=== PATIENT | male | born 1970 | race Caucasian/White ===

== ENCOUNTER 2021-04-09 17:01 | Observation (INO) | payer OTHER, BC, SELFPAY ==
[2021-04-09] VITALS (16 sets, daily range): BP systolic 132–176; BP diastolic 87–102; PULSE 70–78; RESP 10–19; TEMP 36.9; O2SAT 97–100
--- NOTE | ~2021-04-09 | MR_ITS ---
EXAMINATION: MR brain/brain stem wo/w con EXAM DATE: 04/10/2021 08:16 INDICATION: Transient Global Amnesia . TECHNIQUE: Magnetic resonance imaging (MRI) of the brain/brain stem obtained without contrast. Sagit maia T1, axial diffusion, gradient echo (T2*), T1, T2, FLAIR sequences obtained. Patient was then inj ected with 20 cc intravenous Multihance contrast. Axial and coronal postcontrast T1 weighted sequence s obtained. There is no prior study for comparison. FINDINGS: There are no areas of restricted diffusion to suggest acute infarction. There is no acute hemorrhage seen on the T2*, a hemosiderin sensitive sequence. No intraparenchymal brain mass. The ve ntricles are normal in size. There are no extra-axial collections. Flow voids are seen in the cereb ral arteries on the T2-weighted sequences consistent with their expected patency. The orbits are unr emarkable. Soft tissue is unremarkable. Mild ethmoid, sphenoid and maxillary sinus mucoperiosteal th ickening. There are no areas of abnormal enhancement on the postcontrast images. IMPRESSION: 1. No acute intracranial findings. 2. Mild mucoperiosteal thickening. Reviewed, dictated and finalized at location A. INS WINDER
--- NOTE | ~2021-04-09 | XR_ITS ---
EXAMINATION: XR chest 2V DATE: 04/09/2021 17:44 INDICATION: Transient alteration of awareness. TECHNIQUE: Frontal and lateral views of the chest were obtained. COMPARISON: None. FINDINGS: Calcified pulmonary nodules are consistent with old granulomatous disease. No pleural effus ion or pneumothorax. The heart size is normal. There is mild chronic anterior wedging of multiple shelia tebral bodies. IMPRESSION: 1. No acute cardiopulmonary disease. Reviewed, dictated and finalized at location A. D FIBER PASTER OPERATOR
--- NOTE | ~2021-04-09 | CT_ITS ---
EXAMINATION: CTA brain carotid EXAM DATE: 04/10/2021 09:10 INDICATION: Altered mental status . Transient global amnesia. Transient alteration of awareness. TECHNIQUE: Spiral CTA of the carotid arteries was performed with intravenous injection 100 cc of Omn ipaque 350. Axial, coronal, sagittal reformatted images reviewed. Additional reformatted images crea angelika on dedicated 3-D workstation. NASCET comparable standard used to assess the degree of arterial s tenosis. Spiral CT angiogram cerebral arteries performed with the same intravenous injection of cont rast. Source images of the brain CTA transferred to dedicated workstation for 3-D rotational image cr eation. Coronal, sagittal maximum intensity pixel images also reviewed. The dose-length product (DL P) for this examination was 1264.77 mGy-cm. The exposure was tailored according to patient size, an d iterative reconstruction (ASIR) was used as additional dose reduction technique. Correlation is mad e to head CT from yesterday. FINDINGS: No focal carotid plaque, bilateral carotid bulb 0% stenosis. The vertebral arteries are cod ominant. Carotid siphons unremarkable. There is no carotid or vertebral basilar arterial dissection or fibromuscular dysplasia. There are no cerebral artery aneurysms. There is symmetric cerebral arter y arborization. The sagittal, transverse and sigmoid sinuses enhance normally, no venous sinus thromb osis. Internal cerebral veins also enhance normally. Incidental Findings: Right thyroid lobe 1.2 cm nodule. Mild to moderate mucoperiosteal thickening. Mo derate cervical spondylosis. IMPRESSION: 1. No acute carotid or intracranial findings. 2. Bilateral carotid bulb 0% stenosis. 3. Qnoi-dd-mugnhrde mucoperiosteal thickening. Reviewed, dictated and finalized at location A. ICATIONS ANALYST IMPRESSION: 1. No acute carotid or intracranial findings. 2. Bilateral carotid bulb 0% stenosis. 3. Wvzr-vv-[id number] mucoperiosteal thickening.
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
--- NOTE | ~2021-04-09 | US_ITS ---
EXAMINATION: US carotid duplex BI DATE: 04/10/2021 09:03 INDICATION: Encephalopathy with altered mental status. TECHNIQUE: Grayscale, color Doppler, and pulsed Doppler images of the cervical carotid arteries were obtained. The degree of vessel stenosis is placed in one of the following categories: normal, <50%, 5 0-69%, >=70% but less than near-occlusion, near-occlusion, or total occlusion. Note that percent sten osis relative to normal distal artery lumen diameter is indirectly measured from velocity measurement s as described by Dereck, et al. Radiology 2003; 229:340-346. COMPARISON: None. FINDINGS: RIGHT: The right common carotid artery (CCA) peak systolic velocity (PSV) is 148 cm/s. The right internal ca rotid artery (ICA) PSV is 77 cm/s. The right ICA end-diastolic velocity (EDV) is 19 cm/s. The right I CA/CCA PSV ratio is 0.5. Grayscale and color Doppler images yield an estimate of <50% diameter reduct ion from plaque in the ICA. The external carotid artery (ECA) PSV is 67 cm/s. There is antegrade flow in the right vertebral artery. Incidentally noted likely benign 1.2 cm nearly entirely cystic right thyroid nodule. LEFT: The left CCA PSV is 139 cm/s. The left ICA PSV is 61 cm/s. The left ICA EDV is 19 cm/s. The left ICA/ CCA PSV ratio is 0.4. Grayscale and color Doppler images yield an estimate of <50% diameter reduction from plaque in the ICA. The ECA PSV is 41 cm/s. There is antegrade flow in the left vertebral artery . IMPRESSION: 1. <50% stenosis from minimal plaque in the right internal carotid artery. 2. <50% stenosis from minimal plaque in the left internal carotid artery. Reviewed, dictated and finalized at location A. ING BALL ENGRAVER
--- NOTE | 2021-04-09 17:04 | ECG_ITS ---
Measurements Intervals [place] Rate: 72 P: 31 FL: 143 QRS: 51 QRSD: 90 T: 22 QT: 420 QTc: 461 Interpretive Statements SINUS RHYTHM NONSPECIFIC ST & T-WAVE ABNORMALITY- ANT/INF LEADS BASELINE ARTIFACT- I, II, III, AVR, AVL, AVF, V1-V3 BORDERLINE ECG Electronically Signed On 04-09-2021 20:35:39 STUDENT FINANCE SPECIALIST by Asher James D.O.
[2021-04-09 18:08] LABS: Basophils Absolute Auto 0.1 K/mm3 (0.0-0.1); Basophils Percent Auto 0.8 % (0.2-1.2); Hematocrit 51.4 % (42.0-52.0); Hemoglobin 17.6 g/dL (14.0-18.0); Immature Granulocyte Absolute 0.06 K/mm3 (0.00-0.031); Immature Granulocyte Percent A 0.5 % (0-0.5); Lymphocytes Percent Auto 19.4 % (18.3-44.2); Mean Corpuscular HGB Conc 34.2 g/dl (32-36); Mean Corpuscular Hemoglobin 30.1 pg (26-34); Mean Platelet Volume 9.3 fl (7.4-10.4); Monocytes Absolute Auto 1.1 K/mm3 (0.1-0.6); Monocytes Percent Auto 8.1 % (2.6-8.5); Neutrophils Absolute Auto 9.2 K/mm3 (1.3-6.7); Neutrophils Percent Auto 71.2 % (45.5-73.1); Platelet Count Result 252 k/mm3 (150-375); Red Blood Count 5.84 M/mm3 (4.6-6.20); Red Cell Distribution Width 14.1 % (11.5-14.5); White Blood Count 12.9 K/mm3 (4.5-10.0)
[2021-04-09 18:12] LABS: Prothrombin Time 13.1 Seconds (11.1-14.7)
[2021-04-09 18:13] LABS: Partial Thromboplastin Time 34.3 SECONDS (22.3-36.8)
[2021-04-09 18:19] LABS: Ethanol < 10 mg/dL (<10)
[2021-04-09 18:20] LABS: Add Urine Microscopic? NO; Appearance Urine Clear (Clear); Bilirubin Urine Negative (Negative); Blood Urine Negative (Negative); Color Urine Yellow (Yellow); Glucose Urine UA Negative (Negative); Ketones Urine Negative (Negative); Leukocyte Esterase Ur Negative LEU/UL (Negative); Nitrate Urine Negative (Negative); Protein Urine Negative (Negative); Specific Grav Ur 1.023 (1.001-1.035); Urobilinogen Urine Negative mg/dL (<2.0)
[2021-04-09 18:26] LABS: Anion Gap 10 mmol/L (8-16); Blood Urea Nitrogen 18 mg/dL (9-20); Calcium 9.4 mg/dL (8.4-10.2); Carbon Dioxide 26 mmol/L (22-30); Chloride 105 mmol/L (98-107); Estimated CRCL calculation 102 ml/min; Estimated Glomerular Filt Rate > 60; Glucose 102 mg/dL (65-110); Potassium 4.2 mmol/L (3.4-5.0); Sodium 141 mmol/L (137-145)
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
[2021-04-09 18:30] LABS: Barbiturate Screen Urine Negative (Negative); Benzodiazepines Screen Urine Negative (Negative)
[2021-04-09 18:31] LABS: Amphetamine Screen Urine Negative (Negative); Cannabinoid Screen Urine Negative (Negative); Cocaine Screen Urine Negative (Negative); Methadone Screen Urine Negative (Negative); Opiate Screen Urine Negative (Negative); Phencyclidine Screen Urine Negative (Negative)
[2021-04-09 18:44] LABS: Troponin I < 0.012 ng/mL (0.000-0.034)
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
[2021-04-10] VITALS (13 sets, daily range): BP systolic 102–141; BP diastolic 50–99; PULSE 56–75; RESP 12–20; TEMP 36.4–36.9; O2SAT 96–100; BMI 33.2
--- NOTE | 2021-04-10 | ECHO_ITS ---
Patient Info Name: Brian Cordova Age: 51 years : 1970 Gender: Male Ht: 64 in Wt: 243 lbs BSA: 2.29 m2 HR: 66 bpm BP: 137 / 85 mmHg Heart Rhythm: Sinus Rhythm Technical Quality: Good Exam Date: 04/10/2021 9:36 AM Exam Location: [facility] Patient Status: Outpatient Admit Date: 04/09/2021 Staff Ordering Physician: Jaydon Hollingsworth MD Manager In Home: PHILOMENA Attending Provider: Jaydon Hollingsworth MD Referring Physician: Darrick SOL; Exam Type: CA echo doppler color flow Study Info Indications - ALTERED MENTAL STATUS Complete two-dimensional, color flow and Doppler transthoracic echocardiogram is performed. Summary 1. Complete two-dimensional, color flow and Doppler transthoracic echocardiogram is performed. 2. Normal left ventricular size and function with normal wall thickness. No segmental wall motion abnormalities. Ejection fraction visually is 55-60%, measured 60%. The global longitudinal strain is borderline abnormal at -17%. Borderline diastolic dysfunction is present. 3. Left atrial chamber dimension is mildly enlarged. 4. There is mild pulmonic regurgitation. 5. Pulmonary pressure cannot be estimated on this study. 6. Normal sinus rhythm. Left Ventricle Left ventricular chamber dimension is normal. Left ventricular systolic function is normal, estimated at Empty. There is no increased left ventricular wall thickness. Left ventricular septal wall motion is normal. The left ventricular diastolic function is abnormal. Global longitudinal strain is abnormal at -17 %. Right Ventricle Right ventricular chamber dimension is normal. Right ventricular systolic function is normal. Left Atria Left atrial chamber dimension is mildly enlarged. Right Atria Right atrial chamber dimension is normal. Aortic Valve The aortic valve is trileaflet. There is no aortic valve sclerosis. There is no aortic valve stenosis. There is no aortic valve regurgitation. Pulmonic Valve The pulmonic valve is normal. There is no pulmonic valve stenosis. There is mild pulmonic regurgitation. Mitral Valve The mitral valve has normal leaflets. There is no mitral valve stenosis. There is no mitral valve regurgitation. Tricuspid Valve The tricuspid valve leaflets are normal. There is no significant tricuspid valve stenosis. There is trace tricuspid valve regurgitation. No pulmonary hypertension, estimated pulmonary arterial systolic pressure is 15 mmHg. Pericardium/Pleural The pericardium appears normal. There is no pericardial effusion. Inferior Vena Cava Normal inferior vena cava with >50% collapse upon inspiration consistent with Empty right atrial pressure, 10 mmHg. Aorta The aortic root size at the sinus of Valsalva is normal. The prox ascending aorta size is normal. Left Ventricular Outflow Tract Name Value Normal LVOT 2D LVOT Diameter 2.3 cm LVOT Doppler LVOT Peak Gradient 4 mmHg LVOT Mean Gradient 3 mmHg LVOT VTI 23 cm LVOT VTI/AV VTI Ratio
[2021-04-10] MEDS: ACETAMINOPHEN 325 MG TABLET 650 MG PO ×2 (02:40→18:16)
--- NOTE | 2021-04-10 04:55 | ADMGEN ---
This patient, Brian Cordova, was admitted to Medical Room 243-01. Patient/family oriented to hospital policies and general routines including ID bracelet, bed and alarms, visiting hours, pain management, procedures, bathroom and other care routines, personal items, smoking policy, room service/diet, and visiting hours. Information on how to activate the Rapid Response Team has been discussed. Patient/Family are encouraged to report perceived risks to care and to ask questions if they do not understand what they are told or what they should do.
--- NOTE | 2021-04-10 07:35 | PC.NURSE ---
[facility] [id number] 04/10/21.
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
[2021-04-10] MEDS: MONTELUKAST SODIUM 10 MG TABLET PO (11:57)
[2021-04-10] MEDS: FLUTICASONE/SALMETEROL 230-21 MCG INHALER 1 PUFF 2 PUFF INHALATION (20:05)
[2021-04-10] MEDS: ATORVASTATIN 20 MG TABLET PO (20:43)
[2021-04-10] MEDS: IBUPROFEN 600 MG TABLET PO (21:53)
[2021-04-11] VITALS: PULSE 66
[2021-04-11 04:00] VITALS: PULSE 61
[2021-04-11 04:30] VITALS: BP 122/72; PULSE 65; RESP 20; TEMP 36.3; O2SAT 96
[2021-04-11 08:00] VITALS: PULSE 71
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
[2021-04-11] MEDS: MONTELUKAST SODIUM 10 MG TABLET PO (08:18)
[2021-04-11] MEDS: FLUTICASONE/SALMETEROL 230-21 MCG INHALER 1 PUFF 2 PUFF INHALATION (08:29)
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
[2021-04-11 12:00] VITALS: PULSE 74
[2021-04-11 14:00] VITALS: BP 130/79; PULSE 67; RESP 16; TEMP 36.5; O2SAT 98
--- NOTE | 2021-04-12 09:47 | WPDNEUROLOGY ---
Neurology EEG Report General Information Date of Study: 04/11/21 TEST eeg EEG NUMBER [id number]
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
== END 2021-04-11 15:16 | disposition home or self-care (01) ==
LOC: ANHED 20:47 → ANH2MED 04-10 09:24
PROVIDERS: Admitting Provider Internal Medicine; Emergency Provider Emergency Medicine; PCP Internal Medicine; Visit Provider Internal Medicine
DX: G45.4 Transient global amnesia (principal); R41.82 Altered mental status, unspecified; J45.909 Unspecified asthma, uncomplicated; E04.1 Nontoxic single thyroid nodule; I51.7 Cardiomegaly; Z79.899 Other long term (current) drug therapy
CPT/HCPCS: 36415; 70450; 70496; 70498; 70553; 71046; 80048; 80307; 81003; 84484; 85025; 85610; 85730; 93005; 93306; 93880; 94640; 95816; 99285; A9270; A9577; G0378; Q9967

== ENCOUNTER 2022-01-10 09:15 | Outpatient (CLI) | payer OTHER, SELFPAY ==
[2022-01-10 19:24] LABS: Basophils Absolute Auto 0.1 K/mm3 (0.0-0.1); Basophils Percent Auto 1.3 % (0.2-1.2); Hematocrit 50.2 % (42.0-52.0); Hemoglobin 16.9 g/dL (14.0-18.0); Immature Granulocyte Absolute 0.02 K/mm3 (0.00-0.031); Immature Granulocyte Percent A 0.2 % (0-0.5); Lymphocytes Absolute Auto 3.16 K/mm3 (0.9-3.2); Lymphocytes Percent Auto 38.2 % (18.3-44.2); Mean Corpuscular HGB Conc 33.7 g/dl (32-36); Mean Corpuscular Hemoglobin 31.1 pg (26-34); Mean Corpuscular Volume 92.3 fl (80-100); Mean Platelet Volume 9.7 fl (7.4-10.4); Monocytes Percent Auto 11.6 % (2.6-8.5); Neutrophils Percent Auto 48.7 % (45.5-73.1); Platelet Count Result 254 k/mm3 (150-375); Red Blood Count 5.44 M/mm3 (4.6-6.20); Red Cell Distribution Width 14.2 % (11.5-14.5); White Blood Count 8.3 K/mm3 (4.5-10.0)
[2022-01-10 19:32] LABS: Alanine Aminotransferase 56 U/L (6-50); Albumin Level 4.4 g/dL (3.5-5.1); Alkaline Phosphatase 122 U/L (38-126); Anion Gap 10 mmol/L (8-16); Aspartate Amino Transferase 62 U/L (17-59); Bilirubin,Total 0.6 mg/dL (0.2-1.3); Blood Urea Nitrogen 19 mg/dL (9-20); Calcium 9.3 mg/dL (8.4-10.2); Carbon Dioxide 29 mmol/L (22-30); Chloride 103 mmol/L (98-107); Cholesterol 156 mg/dL (0-200); Estimated Glomerular Filt Rate > 60; Glucose 104 mg/dL (65-110); HDL Direct 50 mg/dL; Potassium 4.6 mmol/L (3.4-5.0); Sodium 142 mmol/L (137-145); Triglycerides 141 mg/dL (<150)
[2022-01-10 19:43] LABS: LDL Cholesterol Direct 78 mg/dL
[2022-01-10 20:01] LABS: Prostate Specific Antigen 0.7 ng/mL (< OR = 4.0)
== END 2022-01-10 09:16 | disposition home or self-care (01) ==
LOC: ANHGOSHLAB 09:16
PROVIDERS: PCP Internal Medicine; Visit Provider Nurse Practitioner
DX: E78.5 Hyperlipidemia, unspecified (principal); Z12.5 Encounter for screening for malignant neoplasm of prostate
CPT/HCPCS: 36415; 80053; 80061; 84153; 85025; G0103

== ENCOUNTER 2023-03-26 08:13 | Outpatient (CLI) | payer OTHER, SELFPAY ==
[2023-03-26 19:05] LABS: Basophils Absolute Auto 0.2 K/mm3 (0.0-0.1); Basophils Percent Auto 2.1 % (0.2-1.2); Eosinophils Absolute Auto 0.1 K/mm3 (0-0.3); Eosinophils Percent Auto 1.6 % (0-4.4); Hematocrit 52.4 % (42.0-52.0); Hemoglobin 17.3 g/dL (14.0-18.0); Immature Granulocyte Absolute 0.01 K/mm3 (0.00-0.031); Immature Granulocyte Percent A 0.1 % (0-0.5); Lymphocytes Absolute Auto 3.03 K/mm3 (0.9-3.2); Lymphocytes Percent Auto 36.2 % (18.3-44.2); Mean Corpuscular Hemoglobin 30.5 pg (26-34); Mean Corpuscular Volume 92.3 fl (80-100); Monocytes Absolute Auto 0.9 K/mm3 (0.1-0.6); Monocytes Percent Auto 10.1 % (2.6-8.5); Neutrophils Absolute Auto 4.2 K/mm3 (1.3-6.7); Neutrophils Percent Auto 49.9 % (45.5-73.1); Platelet Count Result 256 k/mm3 (150-375); Red Blood Count 5.68 M/mm3 (4.6-6.20); Red Cell Distribution Width 14.1 % (11.5-14.5); White Blood Count 8.4 K/mm3 (4.5-10.0)
[2023-03-26 20:14] LABS: Alanine Aminotransferase 57 U/L (6-50); Albumin Level 4.4 g/dL (3.5-5.1); Alkaline Phosphatase 96 U/L (38-126); Anion Gap 11 mmol/L (8-16); Aspartate Amino Transferase 54 U/L (17-59); Bilirubin,Total 0.8 mg/dL (0.2-1.3); Blood Urea Nitrogen 17 mg/dL (9-20); Calcium 9.2 mg/dL (8.4-10.2); Carbon Dioxide 25 mmol/L (22-30); Chloride 105 mmol/L (98-107); Cholesterol 174 mg/dL (0-200); Estimated Glomerular Filt Rate > 60; Glucose 86 mg/dL (65-110); HDL Direct 47 mg/dL; Potassium 4.1 mmol/L (3.4-5.0); Sodium 141 mmol/L (137-145); Triglycerides 150 mg/dL (<150)
[2023-03-26 20:25] LABS: LDL Cholesterol Direct 99 mg/dL
[2023-03-26 20:43] LABS: Prostate Specific Antigen 0.5 ng/mL (< OR = 4.0)
[2023-03-26 22:15] LABS: Hemoglobin A1C 5.2 % (<5.7)
== END 2023-03-26 08:14 | disposition home or self-care (01) ==
LOC: ANHGOSHLAB 08:14
PROVIDERS: PCP Internal Medicine; Visit Provider Clinical Nurse Specialist
DX: R73.9 Hyperglycemia, unspecified (principal); Z13.220 Encounter for screening for lipoid disorders; Z12.5 Encounter for screening for malignant neoplasm of prostate; Z13.29 Encounter for screening for other suspected endocrine disorder
CPT/HCPCS: 36415; 80053; 80061; 83036; 84153; 85025; G0103

== ENCOUNTER 2023-11-14 13:15 | Outpatient (CLI) | payer SELFPAY ==
--- NOTE | ~2023-11-14 | XR_ITS ---
XR abdomen/kub 1V Ordering provider: CATARINA Osorio History: . constipation for 3 weeks . Comparison: None. FINDINGS: BOWEL: Nonobstructive bowel gas pattern. ORGANOMEGALY: None. SIGNIFICANT PATHOLOGIC CALCIFICATIONS: None. OTHER: No free air is seen under the diaphragm. Degenerative changes of the spine. IMPRESSION: NO ACUTE ABDOMINAL FINDINGS. Reviewed, dictated and finalized at location A.
== END 2023-11-14 13:16 ==
PROVIDERS: PCP Internal Medicine; Visit Provider Clinical Nurse Specialist
DX: K59.00 Constipation, unspecified (principal)
CPT/HCPCS: 74018

== ENCOUNTER 2023-11-19 12:31 | Outpatient (CLI) | payer OTHER, SELFPAY ==
--- NOTE | ~2023-11-19 | CT_ITS ---
CT of the Abdomen and Pelvis: Indication: Abdominal pain Technique: 2.5 mm axial scans were obtained through the abdomen and pelvis following intravenous adm inistration of 100 cc of Omnipaque 350. Dose reduction technique was used on this scan by utilizing a utomated exposure control and iterative reconstruction technique. The dose-length product (DLP) was 1 044.08 mGy-cm. Findings: Scans through the lung bases are unremarkable. The liver, spleen, pancreas, gallbladder, adrenals and kidneys are within normal limits. No evidence of aortic aneurysm. No lymphadenopathy. No bowel obstruction or bowel wall thickening. There is no evidence to suggest acute appendicitis. Sm all fat-containing umbilical hernia present. Images through the pelvis were performed. Urinary bladder unremarkable. No pelvic mass seen. No ascit es.. Moderate fat-containing left inguinal hernia present. Small fat-containing right inguinal hernia present. Impression: Bilateral fat-containing hernias, left larger than right. Small fat-containing umbilical hernia. Reviewed, dictated and finalized at [facility]. Impression: Bilateral fat-containing hernias, left larger than right. Small fat-containing umbilical hernia.
== END 2023-11-19 12:32 ==
LOC: MICIMG 12:32
PROVIDERS: PCP Clinical Nurse Specialist; Visit Provider Clinical Nurse Specialist
DX: R10.9 Unspecified abdominal pain (principal); K59.00 Constipation, unspecified; K40.20 Bilateral inguinal hernia, without obstruction or gangrene, not specified as recurrent; K42.9 Umbilical hernia without obstruction or gangrene
CPT/HCPCS: 74177; Q9967

== ENCOUNTER 2024-01-22 15:33 | Outpatient (CLI) | payer OTHER, SELFPAY | END 2024-01-22 15:34 | disposition home or self-care (01) | LOC: ANHLAB 15:35 | PROVIDERS: PCP Clinical Nurse Specialist; Visit Provider Anesthesiology | DX: K40.20 Bilateral inguinal hernia, without obstruction or gangrene, not specified as recurrent (principal); Z01.818 Encounter for other preprocedural examination | CPT/HCPCS: 36415; 86850; 86900; 86901 ==

== ENCOUNTER 2024-01-26 02:01 | Day surgery (SDC) | payer OTHER, SELFPAY ==
[2024-01-16 13:43] VITALS: BMI 29.9
--- NOTE | 2024-01-16 13:48 | PC.NURSE ---
Report to the Outpatient Waiting Room, entrance under the green pavilion located off [facility], at time _0600_ on date _[id number]_. Planned Procedure Time: _0730_.? Time changes happen often and if your time is changed the preop area will call you the afternoon before. - You and your visitor will be asked to self-screen and do not enter if you have any COVID symptoms. Please call surgeon if you need to reschedule. - A mask is optional within the hospital at this time. Patients may have clear liquids (water, carbonated beverages, clear teas, apple juice) until 3 hours prior to surgery with a maximum of 20 ounces. - No food from midnight until time of surgery and no smoking Take only the following medications with a SIP of water on the morning of surgery: ___Breo inhaler and if needed Albuterol DO NOT STOP ANY OF YOUR OTHER PRESCRIPTION MEDICATIONS PRIOR TO SURGERY EXCEPT THE FOLLOWING Medications to discontinue per physician __None Please no make-up, nail turkmen, hairspray, perfume, deodorant, or body powder the day of surgery.? No jewelry (including any body piercings) or valuables the day of surgery, leave them at home.? Please take a shower or bath the night before, or the morning of, surgery with an antibacterial soap.? Wear comfortable, loose fitting clothing.? - Jewelry must be removed prior to entering the operating room.? Rings and piercings that are not removed may be cut off. - The hospital will not accept responsibility for valuables.? - Please leave all valuables, including medications, at home the day of surgery. If you are going home after surgery, a licensed industrial tractor driver must drive you home.? - NO public transportation without another adult if you receive anesthesia. - We recommend that an adult stay with you for 24 hours following discharge. - We also recommend that you do not drive, make important decision, drink alcoholic beverages, or take any drugs that were not prescribed by your health care provider for at least 24 hours after your discharge time. Follow any additional instructions given to you from your surgeon. Telephone instructions given to _Brian_and asked if any additional questions and then verbalized understanding. Patient advised to call surgeon office or pre surgery nurse liaison [phone] if any additional questions.
[2024-01-26] VITALS (8 sets, daily range): BP systolic 125–154; BP diastolic 81–100; PULSE 56–77; RESP 12–20; TEMP 36.2–36.4; O2SAT 96–100
[2024-01-26] MEDS: LACTATED RINGERS 1,000 ML 30 ML IV CONT ×2 (06:30→09:54)
[2024-01-26] MEDS: ACETAMINOPHEN 500 MG TABLET 1000 MG PO (06:30)
[2024-01-26] MEDS: KETOROLAC 15 MG/ML VIAL (*BKC) IV PUSH (06:30)
--- NOTE | 2024-01-26 07:14 | WPDANESEPPF ---
Anes - Initial Pre Proc Eval Procedure: Operation Date: 01/26/24 07:30 Proposed Procedures p Robotic Assisted Bilateral Inguinal Hernia Repair with Mesh, - Shelley Farfan MD s Umbilical Hernia Repair with Mesh - Shelley Farfan MD Date/Time: 01/26/24 07:14 Surgeon: Shelley Farfan MD Pre Op Diagnosis: bilat inguinal hernia, umbilical hernia Patient Data Age: 53 Gender: M Height: 1.93 m Weight: 111.4 kg Allergies Allergy/AdvReac Type Severity Reaction Status Date / Time No Known Allergies Allergy Verified 01/16/24 13:40 Home Medications Medication Instructions Recorded Confirmed Type fluticasone furoate 200 1 ea inhalation DAILY 04/09/21 01/16/24 History mcg-vilanterol 25 mcg/dose inhalation powder (Breo Ellipta) montelukast 10 mg tablet 10 mg PO DAILY 04/10/21 01/16/24 History aspirin 81 mg tablet,delayed 81 mg PO DAILY #30 tabs 04/11/21 01/16/24 Rx release (Adult Aspirin Regimen) albuterol sulfate 90 mcg/actuation 2 inh inhalation QID PRN Dyspnea 01/10/22 01/16/24 History aerosol inhaler omeprazole 20 mg tablet,delayed 20 mg PO DAILY 01/10/22 01/16/24 History release sildenafil 50 mg tablet (Viagra) 50 mg PO DAILY PRN sexual activity 11/11/23 01/16/24 Rx #30 tabs atorvastatin 20 mg tablet 20 mg PO DAILY #90 tabs 01/05/24 01/16/24 Rx sodium,potassium,mag sulfates 17.5 See Rx Instructions PO .COMPLEX 01/16/24 Rx gram-3.13 gram-1.6 gram oral soln #354 mL (Suprep Bowel Prep Kit) Patient hx anesthesia problems: none Family hx anesthesia problems: none Results Review: All pre-operative results and documents have been reviewed as part of the pre-operative evaluation. [facility] Past Medical History Medical History Allergies Asthma Surgical History Surgical History No pertinent past surgical history Family History Family History Father Colon cancer Mother Colon cancer Grandparent Diabetes mellitus Social History Social History Smoking status: Never smoker Alcohol intake: current Alcohol use details: 3oz whiskey per month Substance use: never Substance use type: does not use Do You Feel Safe in your Home?: Yes Lack of Transportation: No Lack of Food: Never True Current Housing: I Have Housing Concerned About Future Housing: No Difficulty Paying Gas/Electric Bills: No Difficulty Paying for Meds: No Currently Unemployed: No Education: Associate Degree Difficulty w/ Childcare or Family Care: No Living arrangements: with family Occupation/Education: occupation 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 Informed Consent: The patient's anesthetic plan and its attendant risks and benefits were discussed with the patient/family/POA. Questions were solicited and answers provided to the satisfaction of the patient/family/POA.
--- NOTE | 2024-01-26 07:22 | PM.IMHP ---
H&P: HPI History of Present Illness Date/Time: 01/26/24 07:22 Chief Complaint: bilateral inguinal hernia Narrative: Brian is a 53 y/o male who presents to the office at the request of Shelley Lopez NP for evaluation of bilateral inguinal hernias and a umbilical hernia. Patient has been aware of the umbilical hernia for most of his life. Over the last 4-6 weeks he has been experiencing increased constipation and abdominal discomfort. He also report bilateral inguinal bulging, the left side being larger then the right. Reports occasional left groin discomfort. CT abd/pelvis on 11/19/23 showed bilateral fat containing inguinal hernias as well as a small fat containing umbilical hernia. Review of Systems Review of Systems: All systems reviewed & are unremarkable except as noted in HPI and below PMFSH Past Medical History Medical History Allergies Asthma Surgical History Surgical History No pertinent past surgical history Family History Family History Father Colon cancer Mother Colon cancer Grandparent Diabetes mellitus Social History Social History Smoking status: Never smoker Alcohol intake: current Alcohol use details: 3oz whiskey per month Substance use: never Substance use type: does not use Do You Feel Safe in your Home?: Yes Lack of Transportation: No Lack of Food: Never True Current Housing: I Have Housing Concerned About Future Housing: No Difficulty Paying Gas/Electric Bills: No Difficulty Paying for Meds: No Currently Unemployed: No Education: Associate Degree Difficulty w/ Childcare or Family Care: No Living arrangements: with family Occupation/Education: occupation 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[employer] care concerns: No Meds Home Medications and Allergies Home Medications Medication Instructions Recorded Confirmed Type fluticasone furoate 200 1 ea inhalation DAILY 04/09/21 01/16/24 History mcg-vilanterol 25 mcg/dose inhalation powder (Breo Ellipta) montelukast 10 mg tablet 10 mg PO DAILY 04/10/21 01/16/24 History aspirin 81 mg tablet,delayed 81 mg PO DAILY #30 tabs 04/11/21 01/16/24 Rx release (Adult Aspirin Regimen) albuterol sulfate 90 mcg/actuation 2 inh inhalation QID PRN Dyspnea 01/10/22 01/16/24 History aerosol inhaler omeprazole 20 mg tablet,delayed 20 mg PO DAILY 01/10/22 01/16/24 History release sildenafil 50 mg tablet (Viagra) 50 mg PO DAILY PRN sexual activity 11/11/23 01/16/24 Rx #30 tabs atorvastatin 20 mg tablet 20 mg PO DAILY #90 tabs 01/05/24 01/16/24 Rx sodium,potassium,mag sulfates 17.5 See Rx Instructions PO .COMPLEX 01/16/24 Rx gram-3.13 gram-1.6 gram oral soln #354 mL (Suprep Bowel Prep Kit) Allergies Allergy/AdvReac Type Severity Reaction Status Date / Time No Known Allergies Allergy Verified 01/16/24 13:40 Exam Const: General: cooperative, comfortable and no acute distress Resp: Auscultation: clear to auscultation bilaterally Cardio: Rate: regular rate Rhythm: regular rhythm GI: Inspection: normal to inspection and obesity GI Palp: Yes abdominal tenderness, Yes Soft to palpation, Yes Tenderness to palpation present (GI), No Guarding due to palpation present (GI), No Rigid due to palpation and Yes Hernia present Other: bilateral inguinal hernia L>R, reducible [facility] Assessment and Plan Assessment and plan (1) Bilateral inguinal hernia: Qualifiers: Obstruction and gangrene presence: without obstruction or gangrene Recurrence: non-recurrent Qualified Code(s): K40.20 - Bilateral inguinal hernia, without obstruction or gangrene, not specified as recurrent Code(s): K40.20 - Bilateral inguinal hernia, without o
--- NOTE | 2024-01-26 07:25 | WPDHPUPDATE1 ---
History and Physical Update Update Date/Time: 01/26/24 07:25 History and Physical has been reviewed, including an updated exam of the patient. There are NO changes in the patient's condition. Risks, benefits, and alternatives have been discussed and questions answered. Patient agrees to proceed with procedure.
[2024-01-26] MEDS: ceFAZolin 2 GM/D5W 50 ML 2 GM/50 ML BAG IVPB (07:48)
[2024-01-26] MEDS: BUPIVACAINE/EPINEPHRINE 0.5% 50 ML VIAL 30 ML INFILTRATE (09:01)
--- NOTE | 2024-01-26 09:52 | W.PM.PROC2 ---
Procedure Note - Detailed Date of Procedure 01/26/24 Pre-op Diagnosis bilateral inguinal hernia, umbilical hernia with defect measuring 2.5 cm Post-op Diagnosis Same Procedure Performed Robotic assisted bilateral inguinal hernia repair with mesh, open umbilical hernia repair of 2.5 cm defect with Ventralex mesh in the underlay position Surgeon Shelley Farfan MD Anesthesia General Indications 53-year-old male presenting to the office with bilateral inguinal hernia, left greater than right and umbilical hernia. Patient reports all these hernias have been enlarging and becoming more symptomatic Findings left pantaloon inguinal hernia, right indirect inguinal hernia, incarcerated umbilical measuring 2.5 cm Description of Procedure Patient was brought into the operating room and placed in the supine position. After adequate induction of general anesthesia, the patient was prepped and draped in normal sterile fashion. A time-out was then done to verify the patient's identity, as well as the procedure being performed. I began by making a 8 mm incision in the supraumbilical region, a Veress needle was then placed into the peritoneal cavity. CO2 gas was then insufflated and after adequate pneumoperitoneum was achieved, the Veress needle was removed. I then placed an 8 mm trocar through this incision. I then placed the endoscope through this trocar site and under direct visualization placed 2 further 8 mm ports in the right and left mid abdomen. The [employer] robot was then docked to the 3 trocar sites. I then scrubbed out and went to the robotic console. Upon examining the pelvis, it was noted that the patient had a large left inguinal hernia. The right side was examined and a small hernia defect was noted. I began by making a preperitoneal flap approximately 6 cm superior to the left sided defect. This flap was carried medially past the umbilical ligaments and laterally to the transversalis. It then began dissection of my medial compartment taking this down to the pubic tubercle. Upon dissection of this area, a large direct hernia was encountered. I was able to dissect and reduce this direct hernia. I then began the lateral dissection taking this down to the transversalis fascia. Once these compartments were achieved, I began dissection around the cord structures. A moderate sized indirect hernia was noted at this point. Using careful dissection, was able to reduce indirect hernia sac off the cord structures. Once this was adequately done, I went ahead and placed a large piece of 3D Max mesh into the abdominal cavity. The mesh was carefully positioned, centering the center of the mesh over the direct defect. Once this was done, was very satisfied with our repair. Using 3-0 Vicryl sutures, I tacked the mesh medially to Louie's ligament. Two lateral sutures were placed from the mesh to the transversalis fascia. I then began on the right side by making a preperitoneal flap approximately 6 cm superior to the right sided defect. This flap was carried medially past the umbilical ligaments and laterally to the transversalis. It then began dissection of my medial compartment taking this down to the pubic tubercle. I then began the lateral dissection taking this down to the transversalis fascia. Once these compartments were achieved, I began dissection around the cord structures. A small indirect hernia was noted at this point. Using careful dissection, was able to reduce indirect hernia sac off the cord structures. Once this was adequately done, I went ahead and placed a large piece of 3D Max mesh into the abdominal cavity. The mesh was carefully positioned, centering the center of the mesh over the indirect defect. Once this was done, was very satisfied with our repair. Using 3-0 Vicryl sutures, I tacked the mesh medially to Louie's ligament. Two lateral sutures were placed from the mesh to the transversalis fascia.I then closed the peritoneal flap bilate
[2024-01-26] MEDS: fentaNYL CITRATE INJ (*CRX) 100 MCG/2 ML VIAL 25 MCG IV PUSH ×4 (10:21→10:28)
[2024-01-26] MEDS: oxyCODONE HCL (*CRX) 5 MG TAB IR PO (11:00)
== END 2024-01-26 11:35 | disposition home or self-care (01) ==
PROVIDERS: PCP Clinical Nurse Specialist; Visit Provider Surgery
PROC: 8E0Y4CZ Robotic Assisted Procedure of Lower Extremity, Percutaneous Endoscopic Approach (ICD-10-PCS; CPT 49650; principal; 2024-01-26 07:30)
PROC: (CPT 49650; 2024-01-26 07:30)
DX: K40.20 Bilateral inguinal hernia, without obstruction or gangrene, not specified as recurrent (principal); K42.0 Umbilical hernia with obstruction, without gangrene; J45.909 Unspecified asthma, uncomplicated; Z79.82 Long term (current) use of aspirin; Z79.51 Long term (current) use of inhaled steroids; Z80.0 Family history of malignant neoplasm of digestive organs
CPT/HCPCS: 49650; 49592; S2900; 36415; 86850; 86900; 86901; A9270; C1781; J0690; J1100; J1885; J2250; J2405; J2704; J3010; J7030; J7120

== ENCOUNTER 2024-02-19 08:03 | Day surgery (SDC) | payer OTHER, SELFPAY ==
[2024-01-16 09:38] VITALS: BMI 31.8
[2024-02-04 08:15] VITALS: BMI 18942.5
--- NOTE | 2024-02-04 08:33 | SUR.PREOP ---
SPOKE WITH PT REGARDING RECENT MULTIPLE HERNIA SURGERY O 01-26-24. PT STATES HE SPOKE WITH DR QUIÑONEZ AND COLONOSCOPY ON 02/19/[address] QUIÑONEZ
--- NOTE | 2024-02-19 07:05 | WPDANESEPPF ---
Anes - Initial Pre Proc Eval Procedure: Operation Date: 02/19/24 10:00 Proposed Procedures p Diagnostic Colonoscopy - Shyam Pierre MD Date/Time: 02/19/24 07:05 Surgeon: Shyam Pierre MD Pre Op Diagnosis: Family HX Colon CA, H Colon Polyps Patient Data Age: 53 Gender: M Height: 7.62 cm Weight: 110 kg Allergies Allergy/AdvReac Type Severity Reaction Status Date / Time No Known Allergies Allergy Verified 02/19/24 08:57 Home Medications Medication Instructions Recorded Confirmed Type fluticasone furoate 200 1 ea inhalation DAILY 04/09/21 02/10/24 History mcg-vilanterol 25 mcg/dose inhalation powder (Breo Ellipta) montelukast 10 mg tablet 10 mg PO DAILY 04/10/21 02/10/24 History aspirin 81 mg tablet,delayed 81 mg PO DAILY #30 tabs 04/11/21 02/10/24 Rx release (Adult Aspirin Regimen) albuterol sulfate 90 mcg/actuation 2 inh inhalation QID PRN Dyspnea 01/10/22 02/19/24 History aerosol inhaler omeprazole 20 mg tablet,delayed 20 mg PO DAILY 01/10/22 02/10/24 History release sildenafil 50 mg tablet (Viagra) 50 mg PO DAILY PRN sexual activity 11/11/23 02/10/24 Rx #30 tabs atorvastatin 20 mg tablet 20 mg PO DAILY #90 tabs 01/05/24 02/10/24 Rx Patient hx anesthesia problems: none Family hx anesthesia problems: none Results Review: All pre-operative results and documents have been reviewed as part of the pre-operative evaluation. [facility] Past Medical History Medical History (Updated 02/18/24 @ 12:07 by Román Aggarwal DO) Allergies Asthma GERD without esophagitis Hyperlipidemia Surgical History Surgical History (Updated 02/19/24 @ 09:17 by Shyam Pierre MD) History of bilateral inguinal hernia repair DaVinci assisted. 01/26/24 Dr. Shelley Farfan No pertinent past surgical history Family History Family History Father Colon cancer Mother Colon cancer Grandparent Diabetes mellitus Social History Social History Smoking status: Never smoker Second hand tobacco smoke exposure: No Alcohol intake: never Alcohol use details: 3oz whiskey per month Substance use: current Substance use type: marijuana Other substance usage details: GUMMIES 1-2 X PER WEEK Do You Feel Safe in your Home?: Yes Lack of Transportation: No Lack of Food: Never True Current Housing: I Have Housing Concerned About Future Housing: No Difficulty Paying Gas/Electric Bills: No Difficulty Paying for Meds: No Currently Unemployed: No Education: Associate Degree Difficulty w/ Childcare or Family Care: No Living arrangements: with family Occupation/Education: occupation 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 Informed Consent: The patient's anesthetic plan and its attendant risks and benefits were discussed with the patient/family/POA. Questions were solicited and answers provided to the satisfaction of the patient/family/POA.
[2024-02-19 09:00] VITALS: BMI 31.1
[2024-02-19 09:03] VITALS: BP 124/92; PULSE 66; RESP 16; TEMP 36.5; O2SAT 96
--- NOTE | 2024-02-19 09:14 | PM.HPGS ---
History of Present Illness History of Present Illness Consent: Risks, benefits, and alternatives have been discussed and questions answered. Patient agrees to proceed with procedure. Chief complaint: Family HX Colon CA, H Colon Polyps Narrative: Brian Cordova is a 53 year old male presents for screening colonoscopy. Patient has current weight appetite bowel movements are normal. Patient denies abdominal pain. He has had no bleeding. Family history patient states has multiple family members with colon cancer. Is uncertain of such specifics as to which family members have colon cancer. Patient reports having had a colon polyp on previous colonoscopies. Patient denies any blood in his stools. He reports that 3 weeks ago he had umbilical and inguinal hernia repair in surgeon states it is okay for him to proceed. Review of Systems Review of Systems: All systems reviewed & are unremarkable except as noted in HPI and below PMFSH Past Medical History Medical History (Updated 02/18/24 @ 12:07 by Román Aggarwal DO) Allergies Asthma GERD without esophagitis Hyperlipidemia Surgical History Surgical History (Updated 02/19/24 @ 09:17 by Shyam Pierre MD) History of bilateral inguinal hernia repair DaVinci assisted. 01/26/24 Dr. Shelley Farfan No pertinent past surgical history Family History Family History Father Colon cancer Mother Colon cancer Grandparent Diabetes mellitus Social History Social History Smoking status: Never smoker Second hand tobacco smoke exposure: No Alcohol intake: never Alcohol use details: 3oz whiskey per month Substance use: current Substance use type: marijuana Other substance usage details: GUMMIES 1-2 X PER WEEK Do You Feel Safe in your Home?: Yes Lack of Transportation: No Lack of Food: Never True Current Housing: I Have Housing Concerned About Future Housing: No Difficulty Paying Gas/Electric Bills: No Difficulty Paying for Meds: No Currently Unemployed: No Education: Associate Degree Difficulty w/ Childcare or Family Care: No Living arrangements: with family Occupation/Education: occupation 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[facility] [employer] care concerns: No Meds Home Medications and Allergies Home Medications Medication Instructions Recorded Confirmed Type fluticasone furoate 200 1 ea inhalation DAILY 04/09/21 02/10/24 History mcg-vilanterol 25 mcg/dose inhalation powder (Breo Ellipta) montelukast 10 mg tablet 10 mg PO DAILY 04/10/21 02/10/24 History aspirin 81 mg tablet,delayed 81 mg PO DAILY #30 tabs 04/11/21 02/10/24 Rx release (Adult Aspirin Regimen) albuterol sulfate 90 mcg/actuation 2 inh inhalation QID PRN Dyspnea 01/10/22 02/19/24 History aerosol inhaler omeprazole 20 mg tablet,delayed 20 mg PO DAILY 01/10/22 02/10/24 History release sildenafil 50 mg tablet (Viagra) 50 mg PO DAILY PRN sexual activity 11/11/23 02/10/24 Rx #30 tabs atorvastatin 20 mg tablet 20 mg PO DAILY #90 tabs 01/05/24 02/10/24 Rx Allergies Allergy/AdvReac Type Severity Reaction Status Date / Time No Known Allergies Allergy Verified 02/19/24 08:57 Vital Signs Vital Signs - 24 hr 02/19/24 09:03 Temperature 97.7 F Pulse Rate 66 Respiratory Rate 16 Blood Pressure 124/92 H Pulse Oximetry 96 Exam Narrative: Physical exam reveals patient to be alert. Signs stable. HEENT exam is unremarkable. Patient is anicteric. Lungs are clear to auscultation and percussion. Heart is without murmur or extra sound abdomen bowel sounds are present soft nontender with no organomegaly. Digital external rectal exam normal. Assessment and Plan Assessment and plan (1) Family history of colon cancer: Code(s): Z80.0 - Family history of malignant neoplasm of digestive organs
[2024-02-19] MEDS: LACTATED RINGERS 1,000 ML 150 ML IV CONT (09:16)
[2024-02-19 10:35] VITALS: BP 114/73; PULSE 65; RESP 18; O2SAT 95
[2024-02-19 10:45] VITALS: BP 109/86; PULSE 64; RESP 20; O2SAT 99
[2024-02-19 10:55] VITALS: BP 132/91; PULSE 63; RESP 20; O2SAT 99
--- NOTE | 2024-02-19 12:08 | WPDANESPN ---
Anes - Prog Note Post-Op Date/Time: 02/19/24 12:08 Cardiovascular status: normal Respiratory status: normal Airway patency: baseline Mental status: baseline Post-Op hydration status: normal Vital Signs: Last Vital Signs Temp 36.5 C 02/19/24 09:03 Pulse 63 02/19/24 10:55 Resp 20 02/19/24 10:55 BP 132/91 H 02/19/24 10:55 Pulse Ox 99 02/19/24 10:55 Pain Score (VAS): 0 I/O: Intake & Output 02/18/24 02/19/24 02/19/24 23:59 07:59 15:59 Intake Total 400 Balance 400 Post-procedural complaints: none Patient Feedback: Patient satisfied with anesthetic care. Other Findings: Patient vital signs back to baseline. Patient denies nausea and vomiting. Patient's pain under control. Patient OK for discharge.
== END 2024-02-19 11:02 | disposition home or self-care (01) ==
PROVIDERS: PCP Clinical Nurse Specialist; Visit Provider Internal Medicine Gastroenterology
PROC: 0DJD8ZZ Inspection of Lower Intestinal Tract, Via Natural or Artificial Opening Endoscopic (ICD-10-PCS; CPT 45378; principal; 2024-02-19 10:00)
DX: Z86.0100 Personal history of colon polyps, unspecified (principal); Z80.0 Family history of malignant neoplasm of digestive organs; D12.2 Benign neoplasm of ascending colon
CPT/HCPCS: 45385

== ENCOUNTER 2024-02-19 08:54 | Outpatient (NON) | payer OTHER, SELFPAY | END 2024-02-19 08:55 | disposition home or self-care (01) | LOC: ANHLAB 02-20 08:55 | PROVIDERS: PCP Clinical Nurse Specialist; Visit Provider Internal Medicine Gastroenterology | DX: K63.5 Polyp of colon (principal); Z80.0 Family history of malignant neoplasm of digestive organs | CPT/HCPCS: 88305 ==